=== PATIENT | male | born 2000 | race African-American/Black ===

== ENCOUNTER 2023-03-20 03:10 | Emergency (ER) | payer MEDICAID, OTHER ==
[~2023-03-20] VITALS: Ht 167.6 cm; Wt 64.0 kg
[2023-03-20 03:28] VITALS: BP 110/76
== END 2023-03-20 05:30 | disposition left against medical advice (07) ==
LOC: ER 03:10
DX: Z53.21 Procedure and treatment not carried out due to patient leaving prior to being seen by health care provider (principal)
CPT/HCPCS: 99281